=== PATIENT | male | born 1970 | race Caucasian/White ===

== ENCOUNTER 2021-01-04 23:28 | Inpatient (IN) | payer MEDICARE ==
[~2021-01-04] VITALS: Ht 188 cm; Wt 102.3 kg
[~2021-01-04 23:28] MED LIST: IMDUR ER TAB 3030 MG PO
[2021-01-05] MEDS ORDERED: LANTUS100 UNIT/1 SQ (00:31)
[2021-01-05] MEDS ORDERED: METFORMIN HCL500 MG PO (00:32)
[2021-01-05] MEDS ORDERED: MAGNESIUM OXID400 M1 PO (00:32)
[2021-01-05] MEDS ORDERED: PLAVIX 75 MG TA75 MG PO (00:33)
[2021-01-05] MEDS ORDERED: COZAAR 50MG TAB50 MG PO (00:33)
[2021-01-05] MEDS ORDERED: LIPITOR40 MG PO (00:33)
[2021-01-05] MEDS ORDERED: BUMETANIDE2 MG PO (00:33)
[2021-01-05] MEDS ORDERED: SPIRONOLACTONE25 MG PO (00:34)
[2021-01-05] MEDS ORDERED: ENTRESTO 24 MG1 EACH PO (00:34)
[2021-01-05] MEDS ORDERED: ASPIRIN EC81 MG PO (00:34)
[2021-01-05] MEDS ORDERED: METOPROLOL SUCC50 MG PO (00:35)
[2021-01-05] MEDS ORDERED: PROTONIX40 MG PO (00:35)
[2021-01-05 03:33] LABS: HEMOGLOBIN 14.1 gm/dl (14.0-17.5); RED BLOOD COUNT 4.5 M/UL (4.20-5.50); WHITE BLOOD COUNT 13.9 K/UL (4.5-11.0)
[2021-01-05 04:01] LABS: BUN/CREATININE RATIO 15 (0-10)
[2021-01-05 19:04] LABS: HEMOGLOBIN 12.3 gm/dl (14.0-17.5); WHITE BLOOD COUNT 16.4 K/UL (4.5-11.0)
[2021-01-05 19:06] LABS: RED BLOOD COUNT 3.94 M/UL (4.20-5.50)
[2021-01-05 19:15] LABS: BUN/CREATININE RATIO 20 (0-10)
--- NOTE | 2021-01-05 23:17 | NUR ---
1929-RECEIVED PATIENT FROM SURGERY, UPON ASSESSMENT PATIENT WAS GRABBING AT HIS DAMON AND IV LINES, HIS SPEECH WAS MUMBLED, PATIENT WAS ABLE TO TELL ME HIS NAME AND THAT WE WERE IN [facility]. CIWAA SCORE AT THIS TIME WAS A 4. I NOTIFIED DR LAYNE THAT PATIENT DIDN'T HAVE ANY MEDICATION ORDERS FOR THE CIWAA PROTOCOL. 2009-PATIENT BECOMING MORE AGGRESSIVE, PULLED HIS IV OUT IN HIS RIGHT ANTECUBITAL. PATIENT RECEIVED 2MG OF ATIVAN AT THIS TIME ALONG WITH 1MG OF DILAUDID. PATIENT CIWAA SCORE WAS 12. HE STATED THAT HE HAD A HEADACHE. NOTIFIED DR GONZALEZ AND HE STATED TO GIVE PATIENT MORE ATIVAN ACCORDING TO CIWA PROTOCOL. REASSESSD CIWA 30 MINUTES LATER AND HE WAS AN 8. PATIENT STILL AGGRESSIVE AND TRYING TO PULL AT HIS DAMON, STILL GRABBING AT GIRLFRIEND AND STAFF. PATIENT GIVEN 1MG OF ATIVAN AT THIS TIME. DR GONZALEZ NOTIFIED ONCE AGAIN OF SCORE AND HE STATED TO CONTINUE WITH ATIVAN. REASSESED SCORE AT 2114 AND HE WAS SCORING AN 11. I NOTIFIED DR GONZALEZ AGAIN AND HE CAME AND ASSESSED PATIENT TOLD ME TO GIVE HIM 4MG OF ATIVAN IV AND TRANSFER HIM TO ICU. I CALLED REPORT TO ICU AND PATIENT WAS TRANSFERRED AT 2229.
[2021-01-06 05:30] LABS: HEMOGLOBIN 10.4 gm/dl (14.0-17.5); WHITE BLOOD COUNT 13.7 K/UL (4.5-11.0)
[2021-01-06 05:31] LABS: RED BLOOD COUNT 3.37 M/UL (4.20-5.50)
[2021-01-06 05:52] LABS: BUN/CREATININE RATIO 26 (0-10)
[2021-01-06 08:14] LABS: HIV SCREEN 4TH GENERATION WRFX Non Reactive (Non Reactive)
[2021-01-06 10:14] LABS: HBSAG SCREEN Negative (Negative); HEP A AB, IGM Negative (Negative); HEP B CORE AB, IGM Negative (Negative); HEP C VIRUS AB <0.1 (0.0-0.9); RPR Non Reactive (Non Reactive)
[2021-01-07 05:46] LABS: HEMOGLOBIN 10.8 gm/dl (14.0-17.5); RED BLOOD COUNT 3.58 M/UL (4.20-5.50); WHITE BLOOD COUNT 15.3 K/UL (4.5-11.0)
[2021-01-07 06:22] LABS: BUN/CREATININE RATIO 18 (0-10)
[2021-01-08 05:31] LABS: HEMOGLOBIN 9.7 gm/dl (14.0-17.5)
[2021-01-08 05:34] LABS: RED BLOOD COUNT 3.21 M/UL (4.20-5.50); WHITE BLOOD COUNT 11.3 K/UL (4.5-11.0)
[2021-01-08 05:51] LABS: BUN/CREATININE RATIO 19 (0-10)
[2021-01-09 04:56] LABS: HEMOGLOBIN 10.1 gm/dl (14.0-17.5); RED BLOOD COUNT 3.35 M/UL (4.20-5.50); WHITE BLOOD COUNT 10.1 K/UL (4.5-11.0)
[2021-01-09 05:26] LABS: BUN/CREATININE RATIO 27 (0-10)
--- NOTE | 2021-01-09 15:04 | NUR ---
LEFT VOICEMAIL FOR ROSIE COELLO, SUPERVIS[employer]SEM[employer] FOR VENOUS ULTRASOUND TO INFORM HER OF VENOUS DUPLEX ORDER.
[2021-01-10 04:22] LABS: HEMOGLOBIN 10.4 gm/dl (14.0-17.5); RED BLOOD COUNT 3.4 M/UL (4.20-5.50); WHITE BLOOD COUNT 9.5 K/UL (4.5-11.0)
[2021-01-10 04:42] LABS: BUN/CREATININE RATIO 25 (0-10)
[2021-01-11 05:22] LABS: BUN/CREATININE RATIO 20 (0-10)
[2021-01-12 06:57] LABS: BUN/CREATININE RATIO 21 (0-10)
[2021-01-13 02:22] LABS: HEMOGLOBIN 11.2 gm/dl (14.0-17.5); RED BLOOD COUNT 3.66 M/UL (4.20-5.50); WHITE BLOOD COUNT 11.1 K/UL (4.5-11.0)
[2021-01-13 02:46] LABS: BUN/CREATININE RATIO 24 (0-10)
--- NOTE | 2021-01-15 12:59 | NUR ---
PER DOCTORS ORDERS I PLACED TWO ISLAND DRESSINGS ON BACK AFTER THE DOCTOR REMOVED THE SURGICAL DRESSING. FOLY CATH WAS DCd WITH 800ML OUT OF THE CATHETER. PT TOLERATED IT WELL WITH NO COMPLICATIONS.
[2021-01-17 04:26] LABS: HEMOGLOBIN 12.7 gm/dl (14.0-17.5); RED BLOOD COUNT 4.18 M/UL (4.20-5.50); WHITE BLOOD COUNT 17.3 K/UL (4.5-11.0)
[2021-01-17 04:48] LABS: BUN/CREATININE RATIO 23 (0-10)
[2021-01-17] MEDS ORDERED: LANTUS100 UNIT/1 SQ (09:06)
[2021-01-17] MEDS ORDERED: CELECOXIB200 MG PO (09:06)
[2021-01-17] MEDS ORDERED: HYDROCODON-ACE1 EAC1 PO (09:06)
[2021-01-17] MEDS ORDERED: PROVENTIL HFA6.7 GM INH (09:06)
[2021-01-17] MEDS ORDERED: HYDROCODON-ACE1 EAC2 PO (12:42)
== END 2021-01-17 16:16 | disposition home or self-care (01) | DRG 459 ==
LOC: MED SURG 4 23:28 → CCU 01-05 22:46 → PROG CARE 01-11 15:36
PROVIDERS: Internal Medicine; Internal Medicine Infectious Disease; Orthopaedic Surgery; ADMIT Internal Medicine
PROC: 0RGA071 Fusion of Thoracolumbar Vertebral Joint with Autologous Tissue Substitute, Posterior Approach, Posterior Column, Open Approach (ICD-10-PCS; 2021-01-05)
PROC: 0SG1071 Fusion of 2 or more Lumbar Vertebral Joints with Autologous Tissue Substitute, Posterior Approach, Posterior Column, Open Approach (ICD-10-PCS; principal; 2021-01-05 13:00)
PROC: 0BH18EZ Insertion of Endotracheal Airway into Trachea, Via Natural or Artificial Opening Endoscopic (ICD-10-PCS; 2021-01-06)
PROC: 5A1955Z Respiratory Ventilation, Greater than 96 Consecutive Hours (ICD-10-PCS; 2021-01-06)
DX: S32.021A Stable burst fracture of second lumbar vertebra, initial encounter for closed fracture (principal); J96.01 Acute respiratory failure with hypoxia; G93.41 Metabolic encephalopathy; J15.0 Pneumonia due to Klebsiella pneumoniae; I50.32 Chronic diastolic (congestive) heart failure; F10.239 Alcohol dependence with withdrawal, unspecified; J44.0 Chronic obstructive pulmonary disease with (acute) lower respiratory infection; Z20.822 Contact with and (suspected) exposure to COVID-19; I25.10 Atherosclerotic heart disease of native coronary artery without angina pectoris; K74.60 Unspecified cirrhosis of liver; E11.40 Type 2 diabetes mellitus with diabetic neuropathy, unspecified; E78.5 Hyperlipidemia, unspecified; I11.0 Hypertensive heart disease with heart failure; Z82.49 Family history of ischemic heart disease and other diseases of the circulatory system; K70.10 Alcoholic hepatitis without ascites; Z68.29 Body mass index [BMI] 29.0-29.9, adult; Z79.02 Long term (current) use of antithrombotics/antiplatelets; Z79.4 Long term (current) use of insulin; W13.2XXA Fall from, out of or through roof, initial encounter; F17.210 Nicotine dependence, cigarettes, uncomplicated; E87.6 Hypokalemia
CPT/HCPCS: ECHO; 31500; 36415; 36600; 71045; 72100; 72110; 74018; 76000; 80048; 80053; 80074; 80202; 81001; 82550; 82553; 82803; 82962; 83735; 84100; 84132; 84484; 85025; 85027; 86140; 86592; 86850; 86900; 86901; 87040; 87070; 87077; 87086; 87186; 87205; 87389; 92526; 92610; 93005; 93306; 93970; 94002; 94003; 94640; 94760; 97110; 97116-GP-CQ; 97162; 97167; A6212; C1713; C1762; C9113; G0378; G0379; J0330; J0690; J1040; J1100; J1630; J1644; J1650; J1940; J2001; J2060; J2185; J2250; J2270; J2405; J2543; J2550; J2704; J3010; J3370; J3411; J3475; J3480; J7030; J7040; J7070; J7120; Q9967; U0002